=== PATIENT | female | born 1975 | race Caucasian/White ===

== ENCOUNTER → 2016-11-01 | Outpatient (CLI) | payer BC ==
--- NOTE | 2016-11-01 19:34 | SLS ---
DATE OF SERVICE: 11/01/2016 41-year-old lady evaluated in the sleep center for obstructive sleep apnea, hypopnea syndrome. HISTORY OF PRESENT ILLNESS/SLEEP WAKE EVALUATION: The patient had been diagnosed with obstructive sleep apnea in 2011. Since that time she is on treatment with CPAP. Recently, when she was started on treatment with CPAP she feels well, did not snore and did not wake up from sleep with any respiratory abnormalities. At the present time she started to have snoring again and awakening from sleep at least three times. SLEEP SCHEDULE: From 10 p.m. to 6 a.m. on working days and from 11:00 p.m. to 7 :00 a.m. on the weekend. No problem with falling asleep. No TV in bedroom. Positive history of sleep taking and, as already mentioned above, episodes of snoring, stop breathing during the sleep; sweating, palpitation, grinding teeth. In the morning the patient wakes up tired, feels sleepiness during the day. [place] sleepiness scale significantly increased to 11. PAST MEDICAL HISTORY: Positive for anxiety, depression, iron deficiency anemia , polycystic ovary syndrome. PAST SURGICAL HISTORY: Lap band surgery, cholecystectomy, gastric sleeve surgery, septoplasty. MEDICATIONS: Prozac, iron supplement, multivitamins. SOCIAL HISTORY: Negative for smoking or using alcohol. REVIEW OF SYSTEMS: Multiple awakenings. Some sleepiness during the day. FAMILY HISTORY: Hypertension, heart problems, hyperlipidemia, arthritis, asthma , sinus headache, sleep apnea, snoring, acid reflux, diabetes, thyroid problems , anemia. PHYSICAL EXAMINATION: GENERAL: A pleasant lady without distress. VITAL SIGNS: BP 108/69, HR 64, RR 16, height 4'10", weight 228, BMI 47.8. Neck 14 3/4 inches ( ). Temperature 98.5. OROPHARYNX: Small oropharyngeal air space. ABDOMEN: Obese. EXTREMITIES: Some tendency for swelling of ankles. IMPRESSION: 1. Obstructive sleep apnea, hypopnea syndrome diagnosed in 2011. Presently the patient developed snoring and multiple awakenings. Treatment with CPAP if her sleepiness scale increases to 11. 2. Obesity, body mass index 47.8. 3. History of anxiety. 4. History of depression. 5. History of iron deficiency anemia. 6. Polycystic ovary syndrome. 7. Status post cholecystectomy. 8. Status post lap band surgery and gastric sleeve surgery. 9. Status post septoplasty. PLAN: 1. Repeat CPAP titration for evaluation of effective CPAP pressure at the present time. 2. Losing weight. 3. Sleep hygiene with regular time in bed for at least 8 hours. 4. No driving if feeling sleepiness. Thank you very much for allowing me to participate in the management of your patient. Sincerely, Stephan Cagle MD, PhD, FAASM. Diplomat of [place] [employer], Sleep Medicine Board by [place] [employer] [place] [employer] Medical Direct of [facility]
== END ==
LOC: SLEEP 13:29
PROVIDERS: ATTEND Internal Medicine
DX: G47.33 Obstructive sleep apnea (adult) (pediatric) (principal); E66.9 Obesity, unspecified; F41.9 Anxiety disorder, unspecified; F32.9 Major depressive disorder, single episode, unspecified; E28.2 Polycystic ovarian syndrome; D50.9 Iron deficiency anemia, unspecified; Z90.49 Acquired absence of other specified parts of digestive tract; Z98.890 Other specified postprocedural states; Z68.42 Body mass index [BMI] 45.0-49.9, adult; Z79.899 Other long term (current) drug therapy
CPT/HCPCS: 99211

== ENCOUNTER → 2018-03-08 | Outpatient (CLI) | payer BC ==
--- NOTE | 2018-03-09 08:49 | MR ---
EXAMINATION TYPE: MR brain wo/w con DATE OF EXAM: 03/08/2018 COMPARISON: 02/14/2016 HISTORY: 42-year-old female R56.9, Per Pt Abnormal EEG, Gadavist 10.5ml, Previous MRI on PACS TECHNIQUE: Multiplanar, multisequence images of the brain and brainstem were acquired before and aft er administration of 10.5 mL IV Gadavist. Diffusion weighted imaging is performed. FINDINGS: No evidence for acute infarction, hemorrhage, mass, mass effect, midline shift, herniation, effacemen t of basal cisterns, or extra-axial fluid collection. The ventricles and sulci are age-appropriate. Major intracranial flow voids are intact. T2/FLAIR-weighted with visual minimal to mild scattered burden of white matter change primarily in th e subcortical and periventricular regions of both cerebral hemispheres. A few pericallosal foci prese nt posteriorly as well with 5 foci in each side, unchanged from 2016. Midline structures demonstrate normal morphology. The craniocervical junction is normal. Post contrast images demonstrate no evidence of pathologic enhancement. Dural venous sinuses are pat ent. Trace mucosal thickening ethmoid air cells. Globes are intact. IMPRESSION: Chronic T2 bright white matter changes with minimal to mild burden. No change from 2016. Otherwise, n o intracranial abnormality seen.
== END | disposition home or self-care (01) ==
LOC: RADMRIMAIN 08:17
PROVIDERS: ATTEND Psychiatry & Neurology Neurology
DX: R90.89 Other abnormal findings on diagnostic imaging of central nervous system (principal); R56.9 Unspecified convulsions
CPT/HCPCS: 82565; 70553; 36415; A9585

== ENCOUNTER → 2019-02-27 | Outpatient (CLI) | payer BC ==
--- NOTE | 2019-02-27 10:05 | US ---
EXAMINATION TYPE: US abdomen complete DATE OF EXAM: 02/27/2019 COMPARISON: Nuc med and US from 2012 CLINICAL HISTORY: R10.11 Right upper quadrant pain. EXAM MEASUREMENTS: Liver Length: 12.7 cm Gallbladder Wall: 0.3 cm CBD: 0.3 cm Spleen: 9.9 cm Right Kidney: 10.3 x 4.4 x 4.6 cm Left Kidney: 9.4 x 3.9 x 4.3 cm Patient morbidly obese with extensive overlying bowel gas, technically difficult study Pancreas: Obscured by bowel gas Liver: Slight coarsened hepatic echotexture. Gallbladder: Partially contracted and filled with sludge and stones Evidence for sonographic Stevens's sign: no CBD: wnl Spleen: wnl Right Kidney: No hydronephrosis or masses seen Left Kidney: partially obscured by bowel gas Upper IVC: wnl Abd Aorta: wnl The liver is slightly coarsened throughout. The intrahepatic portion of the IVC and proximal abdomin al aorta are within normal limits. There is no evidence of cholelithiasis. Common bile duct is unre markable. Increase is obscured. The spleen is unremarkable. Left kidney is partially obscured. Kidne ys are symmetric and free of hydronephrosis. No renal lesions are seen. IMPRESSION: 1. Gallbladder is partially contracted and filled with biliary sludge and calculi. No sonographic mayra dence of acute cholecystitis. 2. Slightly coarsened hepatic echotexture throughout can be seen in early hepatic steatosis or other hepatocellular diseases. Correlate with liver function tests. 3. Partial obscuration of the gallbladder and left kidney and obscuration of the pancreas. Exam is li mited by patient body habitus.
== END | disposition home or self-care (01) ==
LOC: RADUSWWP 07:35
PROVIDERS: ATTEND Internal Medicine
DX: K80.20 Calculus of gallbladder without cholecystitis without obstruction (principal); K83.8 Other specified diseases of biliary tract; K76.0 Fatty (change of) liver, not elsewhere classified; K82.8 Other specified diseases of gallbladder; K86.89 Other specified diseases of pancreas
CPT/HCPCS: 76700

== ENCOUNTER → 2019-03-07 | Outpatient (CLI) | payer BC ==
--- NOTE | 2019-03-13 12:16 | MM ---
Reason for exam: screening (asymptomatic). Last mammogram was performed 2 years and 2 months ago. History: Family history of breast cancer in sister at age 48 and breast cancer in sister at age 53. Physical Findings: A clinical breast exam by your physician is recommended on an annual basis and results should be correlated with mammographic findings. MG Screening Mammo w CAD Bilateral CC and MLO view(s) were taken. Prior study comparison: January 08, 2017, mammogram, performed at [facility]. There are scattered fibroglandular densities. There are benign appearing round calcifications bilaterally. There is no discrete abnormality. ASSESSMENT: Benign, BI-RAD 2 RECOMMENDATION: Routine screening mammogram of both breasts in 1 year.
== END | disposition home or self-care (01) ==
LOC: RADMAMWWP 09:54
PROVIDERS: ATTEND Internal Medicine
DX: Z12.31 Encounter for screening mammogram for malignant neoplasm of breast (principal)
CPT/HCPCS: 77067

== ENCOUNTER → 2019-05-27 | Outpatient (CLI) | payer BC ==
--- NOTE | 2019-05-27 16:08 | CT ---
EXAMINATION TYPE: CT abdomen pelvis w con DATE OF EXAM: 05/27/2019 COMPARISON: 01/20/2011 HISTORY: right sided abdominal pain, recent abnormal US CT DLP: 1618 mGycm Automated exposure control for dose reduction was used. CONTRAST: CT scan of the abdomen pelvis is performed with IV Contrast, patient injected with 100 mL of Isovue 3 00. FINDINGS- LUNG BASES- No significant abnormality is appreciated. LIVER/GB-postcholecystectomy changes seen. Liver homogeneous.. PANCREAS- No gross abnormality is seen. SPLEEN- No gross abnormality is seen. ADRENALS- No gross abnormality is seen. KIDNEYS/BLADDER- no hydronephrosis nephrolithiasis or renal mass. BOWEL-postsurgical change involving the stomach noted. Small hiatal hernia noted.. LYMPH NODES-there is a low-density lymph node seen in the left periaortic region measuring a short ax is of 10 mm.. OSSEOUS STRUCTURES-hypertrophic change of the vertebral column.. OTHER- lower uterine segment and cervix are slightly lobulated and should be correlated with pelvic ultrasound for further assessment. Additionally there is a hypodense lesion within the left ovary eneida suring 1.6 cm which could represent an ovarian cyst or cystic lesion. IMPRESSION- 1. Postcholecystectomy changes. 2. Lobulation of the lower uterine segment of the uterus and endocervical canal for which physical ex am and ultrasound recommended. Additionally there is a 1.7 cm left adnexal lesion which could be haven elated with pelvic ultrasound. 3. Postsurgical changes involving the stomach. Bowel gas pattern nonspecific with no obstruction. 4. Left periaortic low density lymphadenopathy measuring short axis of 1 cm. A borderline pathologic. This could be followed on a short-term basis as clinically warranted.
== END | disposition home or self-care (01) ==
LOC: RADCTMAIN 13:39
PROVIDERS: ATTEND Internal Medicine
DX: R59.0 Localized enlarged lymph nodes (principal); N85.9 Noninflammatory disorder of uterus, unspecified; Z98.890 Other specified postprocedural states; Z90.49 Acquired absence of other specified parts of digestive tract; Z88.8 Allergy status to other drugs, medicaments and biological substances
CPT/HCPCS: 74177; Q9967

== ENCOUNTER → 2019-06-03 | Outpatient (CLI) | payer BC ==
--- NOTE | 2019-06-03 13:29 | US ---
EXAMINATION TYPE: US transvaginal DATE OF EXAM: 06/03/2019 COMPARISON: CT CLINICAL HISTORY: R19.09 Abd pelvic mass. TECHNIQUE: Transvaginal (TV). Transvaginal sonographic images were medically necessary per physicia n's order; ; C section x 2; Poly Cystic Ovarian Syndrome per patient; Followup left ovarian cyst; patient stated menstrual cycles begin one week earlier than prior month with symptoms x 1 year. Date of LMP: 05/13/2019 EXAM MEASUREMENTS: Uterus: 9.3 x 5.2 x 4.8 cm Endometrial Stripe: 1.6 cm A/P Right Ovary: not seen Left Ovary: 1.7 x 1.4 x 1.5 cm 1. Uterus: Anteverted; multiple large Nabothian Cysts are seen in Cervix with largest cyst = 1.4 x 1 .6 x 1.2cm 2. Endometrium: thickened as is greater than 1.4cm (normal range) for day 22 LMP. However overall th is is within normal limits for a premenopausal female. 3. Right Ovary: not seen 4. Left Ovary: small follicular cyst seen = 0.7 x 0.7 x 0.6cm 5. Bilateral Adnexa: wnl 6. Posterior cul-de-sac: wnl Limited evaluation due to patient body habitus. IMPRESSION: 1. Limited evaluation due to patient body habitus. The cervix displays multiple nabothian cysts that could relate to heterogeneity seen on the prior CT although correlation with physical exam to evaluat e the cervix is again recommended. Line 2. Markedly suboptimal visualization of the left ovary containing a single subcentimeter follicle. No nvisualization of the right ovary.
== END | disposition home or self-care (01) ==
LOC: RADUSWWP 12:21
PROVIDERS: ATTEND Internal Medicine
DX: N88.8 Other specified noninflammatory disorders of cervix uteri (principal)
CPT/HCPCS: 76830

== ENCOUNTER → 2020-08-17 | Outpatient (CLI) | payer BC ==
--- NOTE | 2020-08-18 12:18 | MM ---
Reason for exam: screening (asymptomatic). Last mammogram was performed 1 year and 5 months ago. History: Family history of breast cancer in sister at age 48 and breast cancer in sister at age 53. Physical Findings: A clinical breast exam by your physician is recommended on an annual basis and results should be correlated with mammographic findings. MG Screening Mammo w CAD Bilateral CC and MLO view(s) were taken. Prior study comparison: March 07, 2019, bilateral MG screening mammo w CAD. January 08, 2017, mammogram, performed at [facility]. No significant changes when compared with prior studies. ASSESSMENT: Benign, BI-RAD 2 RECOMMENDATION: Routine screening mammogram of both breasts in 1 year.
== END | disposition home or self-care (01) ==
LOC: RADMAMWWP 07:36
PROVIDERS: ATTEND Internal Medicine
DX: Z12.31 Encounter for screening mammogram for malignant neoplasm of breast (principal); Z80.3 Family history of malignant neoplasm of breast
CPT/HCPCS: 77067

== ENCOUNTER 2020-09-16 07:21 | Emergency (ER) | payer BC ==
[2020-09-16 07:30] VITALS: TEMP 97.4
[2020-09-16] MEDS ORDERED: LORazepam 2 MG/ML INJ IV STA ×2 (07:42→09:10)
[2020-09-16] MEDS ORDERED: SODIUM CHLORIDE 0.9% 1,000 ML IV STA (07:42)
--- NOTE | 2020-09-16 07:43 | ED ---
General Adult HPI - General Chief complaint: Anxiety Stated complaint: racing heart Time Seen by Provider: 09/16/20 07:30 Source: patient Mode of arrival: ambulatory Limitations: no limitations - History of Present Illness Initial comments: 45-year-old female with a past medical history of anxiety presents to the emergency room for a chief complaint of racing heart. Patient states that she has a history of anxiety and is prescribed as needed Xanax for this. Patient reports last 2 nights she did not sleep well. Last night she took half a Xanax before going to bed. Patient states she woke up around 5 AM and her heart was racing. States it felt like she was having her normal episode of anxiety but the racing heart persisted. States that it usually will resolve after about an hour but after 2 hours of symptoms she became concerned. She states she started to have a little bit of pressure in her chest. Denies radiating pain. Her prompted her to come to the emergency room. She did not take any Xanax for this episode. Patient denies smoking history, diabetes, hyperlipidemia, hypercholesterolemia. Patient has no other complaints at this time including shortness of breath, chest pain, abdominal pain, nausea or vomiting, headache, or visual changes. - Related Data Home Medications Medication Instructions Recorded Confirmed ALPRAZolam [Xanax] 0.25 - 0.5 mg PO DAILY PRN 09/16/20 09/16/20 Biotin 5 mg PO DAILY 09/16/20 09/16/20 Butalb/APAP/Caff 50-325-40Mg 1 tab PO Q4H PRN 09/16/20 09/16/20 [Fioricet 50-325-40] Cetirizine HCl [Zyrtec] 10 mg PO DAILY PRN 09/16/20 09/16/20 Cholecalciferol [Vitamin D3 (25 50 mcg PO DAILY 09/16/20 09/16/20 Mcg = 1000 Iu)] FLUoxetine HCL 40 mg PO DAILY 09/16/20 09/16/20 Fluticasone Nasal [place] [Flonase 2 spr EA NOSTRIL DAILY PRN 09/16/20 09/16/20 Nasal [place]] Milk Thistle 150 mg PO DAILY 09/16/20 09/16/20 Multivitamins, Thera [Multivitamin 1 tab PO DAILY 09/16/20 09/16/20 (formulary)] Allergies Allergy/AdvReac Type Severity Reaction Status Date / Time amoxicillin Allergy Anaphylaxis Verified 09/16/20 09:23 Review of Systems ROS Statement: Those systems with pertinent positive or pertinent negative responses have been documented in the HPI. ROS Other: All systems not noted in ROS Statement are negative. Past Medical History History of Any Multi-Drug Resistant Organisms: None Reported Past Surgical History: Section, Cholecystectomy Past Psychological History: Anxiety Smoking Status: Never smoker Past Alcohol Use History: None Reported Past Drug Use History: None Reported General Exam Limitations: no limitations General appearance: alert, anxious Head exam: Present: atraumatic, normocephalic, normal inspection Eye exam: Present: normal appearance, PERRL, EOMI. Absent: scleral icterus, conjunctival injection, periorbital swelling ENT exam: Present: normal exam, mucous membranes moist Neck exam: Present: normal inspection, full ROM. Absent: tenderness, meningi smus, lymphadenopathy Respiratory exam: Present: normal lung sounds bilaterally. Absent: respiratory distress, wheezes Cardiovascular Exam: Present: normal rhythm, tachycardia, normal heart sounds GI/Abdominal exam: Present: soft, normal bowel sounds. Absent: distended, tenderness, guarding, rebound, rigid Course Vital Signs 09/16/20 09/16/20 07:28 09:01 Temperature 97.4 F L Pulse Rate 111 H 99 Respiratory 16 19 Rate Blood Pressure 165/74 123/77 O2 Sat by Pulse 98 98 Oximetry EKG Findings - EKG Comments: EKG Findings:: Sinus tachycardia, ventricular rate 113, LA interval 140, QTc 482 Medical Decision Making - Medical Decision Making Patient presents initially mildly tachycardic. EKG shows a sinus tachycardia. Nonischemic. CBC CMP unremarkable. Troponin negative. Patient was given a liter of fluids and a milligram of Ativan. Her heart rate did improve to the high 90s. She is anywhere between 96-99 bpm. Symptoms did improve somewhat but she is still feeling her heart is racing and anxious. She was given another dose of Ativan. D-dimer added. D-dimer is within normal limits. Patient was given another milligram of Ativan and did have significant improvement in symptoms. She was resting. Heart rate was down to the 80s. She does not have cardiac risk factors such as diabetes, smoking, hyperlipidemia, hypertension. Patient can be discharged home in stable condition to follow up with primary care. She does have a ride. She'll return here for any worsening symptoms. - Lab Data Result diagrams: 09/16/20 07:48 09/16/20 07:48 Lab Results 09/16/20 09/16/20 09/16/20 Range/Units 07:48 07:48 07:48 WBC 6.6 (3.8-10.6) k/uL RBC 4.59 (3.80-5.40) m/uL Hgb 12.7 (11.4-16.0) gm/dL Hct 37.7 (34.0-46.0) % MCV 82.0 (80.0-100.0) fL MCH 27.6 (25.0-35.0) pg MCHC 33.6 (31.0-37.0) g/dL RDW 14.7 (11.5-15.5) % Plt Count 254 (150-450) k/uL MPV 8.1 Neutrophils % 76 % Lymphocytes % 16 % Monocytes % 5 % Eosinophils % 2 % Basophils % 1 % Neutrophils # 5.0 (1.3-7.7) k/uL Lymphocytes # 1.0 (1.0-4.8) k/uL Monocytes # 0.3 (0-1.0) k/uL Eosinophils # 0.1 (0-0.7) k/uL Basophils # 0.0 (0-0.2) k/uL D-Dimer (<0.60) mg/L FEU Sodium 140 (137-145) mmol/L Potassium 3.8 (3.5-5.1) mmol/L Chloride 105 (98-107) mmol/L Carbon Dioxide 28 (22-30) mmol/L Anion Gap 7 mmol/L BUN 8 (7-17) mg/dL Creatinine 0.59 (0.52-1.04) mg/dL Est GFR (CKD-EPI)AfAm >90 (>60 ml/min/1.73 sqM) Est GFR (CKD-EPI)NonAf >90 (>60 ml/min/1.73 sqM) Glucose 114 H (74-99) mg/dL Calcium 9.2 (8.4-10.2) mg/dL Magnesium 2.1 (1.6-2.3) mg/dL Total Bilirubin 0.4 (0.2-1.3) mg/dL AST 25 (14-36) U/L ALT 16 (4-34) U/L Alkaline Phosphatase 107 (38-126) U/L Troponin I <0.012 (0.000-0.034) ng/mL Total Protein 6.6 (6.3-8.2) g/dL Albumin 3.8 (3.5-5.0) g/dL 09/16/20 Range/Units 09:15 WBC (3.8-10.6) k/uL RBC (3.80-5.40) m/uL Hgb (11.4-16.0) gm/dL Hct (34.0-46.0) % MCV (80.0-100.0) fL MCH (25.0-35.0) pg MCHC (31.0-37.0) g/dL RDW (11.5-15.5) % Plt Count (150-450) k/uL MPV Neutrophils % % Lymphocytes % % Monocytes % % Eosinophils % % Basophils % % Neutrophils # (1.3-7.7) k/uL Lymphocytes # (1.0-4.8) k/uL Monocytes # (0-1.0) k/uL Eosinophils # (0-0.7) k/uL Basophils # (0-0.2) k/uL D-Dimer 0.56 (<0.60) mg/L FEU Sodium (137-145) mmol/L Potassium (3.5-5.1) mmol/L Chloride (98-107) mmol/L Carbon Dioxide (22-30) mmol/L Anion Gap mmol/L BUN (7-17) mg/dL Creatinine (0.52-1.04) mg/dL Est GFR (CKD-EPI)AfAm (>60 ml/min/1.73 sqM) Est GFR (CKD-EPI)NonAf (>60 ml/min/1.73 sqM) Glucose (74-99) mg/dL Calcium (8.4-10.2) mg/dL Magnesium (1.6-2.3) mg/dL Total Bilirubin (0.2-1.3) mg/dL AST (14-36) U/L ALT (4-34) U/L Alkaline Phosphatase (38-126) U/L Troponin I (0.000-0.034) ng/mL Total Protein (6.3-8.2) g/dL Albumin (3.5-5.0) g/dL Disposition Clinical Impression: Palpitations Disposition: HOME SELF-CARE Condition: Good Instructions (If sedation given, give patient instructions): Generalized Anxiet y Disorder (ED), Heart Palpitations (ED) Additional Instructions: Please follow-up with your doctor in one to 2 days. If symptoms are worsening return to the emergency room for further evaluation. Is patient prescribed a controlled substance at d/c from ED?: No Referrals: Ryan Alvarez MD [Primary Care Provider] - 1-2 days Time of Disposition: 10:20
[2020-09-16 08:03] LABS: Basophils % (A) 1 %; Eosinophils # (A) 0.1 k/uL (0-0.7); Eosinophils % (A) 2 %; HCT 37.7 % (34.0-46.0); HGB 12.7 gm/dL (11.4-16.0); Lymphocytes % (A) 16 %; MCH 27.6 pg (25.0-35.0); MCHC 33.6 g/dL (31.0-37.0); Mean Platelet Volume 8.1; Monocytes # (A) 0.3 k/uL (0-1.0); Monocytes % (A) 5 %; Neutrophils % (A) 76 %; Platelet Count 254 k/uL (150-450); RBC 4.59 m/uL (3.80-5.40); RDW 14.7 % (11.5-15.5); WBC 6.6 k/uL (3.8-10.6)
--- NOTE | 2020-09-16 08:38 | XR ---
EXAMINATION TYPE: XR chest 2V DATE OF EXAM: 09/16/2020 COMPARISON: 11/02/2009 HISTORY: Palpitations TECHNIQUE: Frontal and lateral views of the chest are obtained. FINDINGS: Multiple overlying leads. Heart size is within normal limits. No pleural effusion, focal c onsolidation or pneumothorax. IMPRESSION: 1. No acute pulmonary disease.
[2020-09-16 08:42] LABS: ALT 16 U/L (4-34); AST 25 U/L (14-36); African American GFR (CKD) >90 (>60 ml/min/1.73 sqM); Albumin 3.8 g/dL (3.5-5.0); Alkaline Phosphatase 107 U/L (38-126); Anion Gap 7 mmol/L; Blood Urea Nitrogen 8 mg/dL (7-17); Calcium 9.2 mg/dL (8.4-10.2); Carbon Dioxide 28 mmol/L (22-30); Chloride 105 mmol/L (98-107); Glucose 114 mg/dL (74-99); Magnesium 2.1 mg/dL (1.6-2.3); Non-African American GFR(CKD) >90 (>60 ml/min/1.73 sqM); Potassium 3.8 mmol/L (3.5-5.1); Sodium 140 mmol/L (137-145); Total Bilirubin 0.4 mg/dL (0.2-1.3); Total Protein 6.6 g/dL (6.3-8.2)
[2020-09-16 10:56] VITALS: BP 125/79; PULSE 88; RESP 17
== END 2020-09-16 10:58 | disposition home or self-care (01) ==
LOC: EC 07:21
DX: R00.2 Palpitations (principal); F41.9 Anxiety disorder, unspecified; Z79.899 Other long term (current) drug therapy
CPT/HCPCS: 36415; 93005; 85379; 80053; 83735; 84484; 85025; 71046; 99285; 96374; 96375; 96361 ×3; J2060

== ENCOUNTER 2020-12-23 10:10 | Day surgery (SDC) | payer BC ==
[2020-12-21 14:32] VITALS: BMI 53.3
[~2020-12-23 10:10] MED LIST: LACTATED RINGERS 1,000 ML IV SCH
[2020-12-23 11:10] VITALS: RESP 16; TEMP 97.4
[2020-12-23] MEDS ORDERED: PROPOFOL 10 MG/ML 20 ML VIAL IV ONE (12:02)
[2020-12-23] MEDS ORDERED: LIDOCAINE 1% INJ 10MG/ML (20 ML MDV) ONE (12:02)
--- NOTE | 2020-12-23 12:16 | P.PCN ---
Date of Procedure: 12/23/20 Procedure(s) Performed: BRIEF HISTORY: Patient is a 45-year-old, pleasant, female scheduled for an upper endoscopy as a part of value should persistent nausea and reflux symptoms for the last several months duration. PROCEDURE PERFORMED: Esophagogastroduodenoscopy with biopsy. PREOPERATIVE DIAGNOSIS: Nausea and reflux symptoms. IV sedation per anesthesia. PROCEDURE: After informed consent was obtained, the patient was brought into the endoscopy unit. IV sedation was administered by Anesthesia under continuous monitoring. Initially the Olympus GIF-140 video endoscope was inserted into the mouth. Esophagus intubated without any difficulty. It was gradually advanced into the stomach and duodenum and carefully examined. The bulb and the second part of the duodenum appeared normal. The scope at this time was withdrawn to the stomach, adequately insufflated with air, and upon careful examination, mucosa of the antrum, had mild gastritis and biopsies were done from this area. The body, cardia and the fundus appeared normal. There was evidence of gastric sleeve surgery noted. The scope was then withdrawn into the esophagus. The GE junction was located at 39 cm from the incisors. Mall sliding type hiatal hernia noted. Biopsies were done from the distal esophagus. The esophagus appe ared normal. There were no erosions or ulcerations seen and the patient tolerated the procedure well. IMPRESSION: 1. Small sliding type hiatal hernia. 2. Mild antral gastritis 3. Evidence of gastric sleeve surgery. RECOMMENDATIONS: The findings of this examination were discussed with the patient as well as a family. She was advised to follow with the biopsy results. She'll be given a trial of Prilosec 20 mg daily and was briefly educated about antireflux.
[2020-12-23 12:45] VITALS: BP 123/87; PULSE 104
== END 2020-12-23 13:04 | disposition home or self-care (01) ==
LOC: ORWHC2ENDO 10:10
PROVIDERS: ATTEND Internal Medicine Gastroenterology
DX: K29.50 Unspecified chronic gastritis without bleeding (principal); K21.9 Gastro-esophageal reflux disease without esophagitis; K44.9 Diaphragmatic hernia without obstruction or gangrene; Z98.84 Bariatric surgery status; Z88.0 Allergy status to penicillin; G47.33 Obstructive sleep apnea (adult) (pediatric); F41.9 Anxiety disorder, unspecified; F32.9 Major depressive disorder, single episode, unspecified; Z79.899 Other long term (current) drug therapy
CPT/HCPCS: 43239; 81025; 88305; J2001; J2704

== ENCOUNTER → 2021-10-12 | Outpatient (CLI) | payer BC ==
--- NOTE | 2021-10-13 16:50 | MM ---
Reason for Exam: Screening (asymptomatic). Last mammogram was performed 1 year(s) and 1 month(s) ago. Patient History: Menarche at age 14. First Full-Term at age 20. Sister had breast cancer, age 48. Last menstrual period: 10/02/2021 Risk Values: Mary [place] 5 year model risk: 1.5%. NCI Lifetime model risk: 17.1%. Prior Study Comparison: 01/08/2017 Screening Mammogram, [facility]. 03/07/2019 Bilateral Screening Mammogram, [facility]. 08/17/2020 Bilateral Screening Mammogram, [facility]. Tissue Density: There are scattered fibroglandular densities. Findings: Analyzed By CAD. No suspicious groups of microcalcifications, spiculated or lobular masses, architectural distortion or other secondary signs of malignancy are mammographically apparent. Overall Assessment: Benign, BI-RAD 2 Management: Screening Mammogram of both breasts in 1 year. A negative mammogram report should not preclude additional follow up of suspicious palpable abnormalities. Patient should continue monthly self breast exam. A clinical breast exam by your physician is recommended on an annual basis and results should be correlated with mammographic findings. Electronically signed and approved by: Raul Carranza D.O. Radiologis
== END | disposition home or self-care (01) ==
LOC: RADMAMWWP 07:27
PROVIDERS: ATTEND Obstetrics & Gynecology
DX: Z12.31 Encounter for screening mammogram for malignant neoplasm of breast (principal); Z80.3 Family history of malignant neoplasm of breast
CPT/HCPCS: 77067

== ENCOUNTER → 2022-03-28 | Outpatient (CLI) | payer BC ==
--- NOTE | 2022-03-28 17:10 | P.SLEEP ---
History of Present Illness DATE: 03/28/2022 CONSULTATION/NEW PATIENT EVALUATION HISTORY OF PRESENT ILLNESS/SLEEP-WAKE EVALUATION: 46-year-old lady had been ev aluated in the sleep center for obstructive sleep apnea hypopnea syndrome. Patient has history of obstructive sleep apnea since 2011. Last time I so patient in 2017. Patient continued to use sure CPAP equipment for about the 1 years ago. I checked CPAP unit is very old. CPAP pressure is 10 cm of water. Patient did not use CPAP unit recently. No information on apnea-hypopnea index in that unit. SLEEP SCHEDULE: Usually sleep schedule 10 PM to 7 AM on weekdays and from 12 until until 7 AM on weekend. FALLING ASLEEP: No problems with falling asleep, no TV in bedroom. DURING SLEEP: Patient usually sleeps on the side position with snoring and multiple awakenings from sleep. Positive history of panic attack, palpitation, sweating, grinding teeth during the sleep time. No history of hypnogogical hallucinations, sleep paralysis, or cataplexy. DURING THE DAY/WAKE STATE: In the morning patient wake up tired, has difficulties to pay attention, has episodes of irritability, depression, anxiety.. [place] sleepiness scale is increased to 13. Usually patient doesn't take naps. PAST MEDICAL HISTORY: Depression, anxiety, iron deficiency anemia, polycystic ovary syndrome, menopausal. PAST SURGICAL HISTORY: Cholecystectomy, gastric sleep, nasal septoplasty, C- section. MEDICATIONS: Prozac 20 mg once a day, buspirone, Singulair. SOCIAL HISTORY: Negative for smoking or using alcohol. FAMILY HISTORY: Hypertension, heart problems, diabetes, mental illness. REVIEW OF SYSTEMS: Snoring, multiple awakenings from sleep, sleepiness during the day. No fevers. No double vision. No recent chest pain. No shortness of breath. No abdominal pain. No bleeding episodes. No blood in urine. No seizure episodes. PHYSICAL EXAMINATION: GENERAL: A pleasant patient without any distress. VITAL SIGNS: BP 126/82, HR 77, RR 16, weight 264 pounds, height 4 foot 9.5 inches, body mass index 56.1. HEENT: PERRLA, EOMI. Evaluation of oropharynx showed tongue protrudes midline, low position of soft palate Mallampati 4. NECK: Supple. No JVD. Thyroid is not palpable. 16 and 2/3 inches in circumference. LUNGS: Clear to percussion and to auscultation. Good air exchange. No wheezing or rhonchi. HEART: S1, S2 regular. No murmurs, gallops or rubs. ABDOMEN: Soft and nontender. Bowel sounds are present. No organomegaly appreciated. Obese EXTREMITIES: No clubbing or cyanosis. VINYL INSTALLER: Awake, alert, and oriented x3. Cranial nerves 2 to 7 intact. There is no fasciculation or atrophy noted. No focal deficits observed. ASSESSMENT: 1. Snoring and multiple awakenings from sleep, extremely low position of soft palate Mallampati 4, white neck 16 inches, sleepiness, history of obstructive sleep apnea in the past. Obstructive sleep apnea hypopnea syndrome. 2. Obesity body mass index 56.1. 3. History of depression and anxiety. 4. History of iron deficiency anemia. 5 history of polycystic ovary syndrome. 6 . Status post cholecystectomy. 7. Status post lap band surgery and gastric sleeve surgery. 8. Status post nasal septoplasty. PLAN: 1. Home sleep apnea test for evaluation of patient's breathing during sleep and the present time. 2. CPAP/BiPAP titration if necessary following results of home sleep apnea test. 3. Preferable position during sleep on the side. 4. No driving if patient feels any sleepiness. Patient is aware of civil and criminal liability for unsafe driving. 5. Sleep hygiene with regular sleep time for at least 7.5-8 hours. 6. Watching and losing weight. Thank you very much for referring this patient for consultation. Sincerely, Stephan Cagle MD, PhD, FAASM. Diplomat of [place] [employer], Sleep Medicine Board by [place] [employer] [place] [employer]worth[employer] Inspector of [facility] [place] Past Medical History Past Medical History: GERD/Reflux, Sleep Apnea/CPAP/BIPAP Additional Past Medical History / Comment(s): NAUSEA, REFLUX, CRAMPING, CHANGE IN BOWEL HABITS. USES C PAP MACHINE History of Any Multi-Drug Resistant Organisms: None Reported Past Surgical History: Bariatric Surgery, Section, Cholecystectomy Additional Past Surgical History / Comment(s): SEPTOPLASTY. GASTRIC SLEEVE 2016. EGD/COLONOSCOPY Past Anesthesia/Blood Transfusion Reactions: Motion Sickness Additional Past Anesthesia/Blood Transfusion Reaction / Comment(s): WILL SOMETIMES HAVE PALPATATIONS COMING OUT OF ANESTHESIA Smoking Status: Never smoker - Past Family History Sister(s) Family Medical History: Deep Vein Thrombosis (DVT) Additional Family Medical History / Comment(s): 2 SISTERS WITH CANCER Medications and Allergies Home Medications Medication Instructions Recorded Confirmed Type ALPRAZolam [Xanax] 0.25 - 0.5 mg PO DAILY PRN 09/16/20 12/23/20 History Biotin 5 mg PO DAILY 09/16/20 12/23/20 History Butalb/APAP/Caff 50-325-40Mg 1 tab PO Q4H PRN 09/16/20 12/23/20 History [Fioricet 50-325-40] Cetirizine HCl [Zyrtec] 10 mg PO DAILY PRN 09/16/20 12/23/20 History Cholecalciferol [Vitamin D3 (25 50 mcg PO DAILY 09/16/20 12/23/20 History Mcg = 1000 Iu)] FLUoxetine HCL 40 mg PO DAILY 09/16/20 12/23/20 History Fluticasone Nasal [place] [Flonase 2 spr EA NOSTRIL DAILY PRN 09/16/20 12/23/20 History Nasal [place]] Multivitamins, Thera [Multivitamin 1 tab PO DAILY 09/16/20 12/23/20 History (formulary)] busPIRone HCL 5 mg PO BID 12/21/20 12/23/20 History Allergies Allergy/AdvReac Type Severity Reaction Status Date / Time amoxicillin Allergy Anaphylaxis Verified 12/23/20 10:57 Penicillins Allergy Anaphylaxis Verified 12/23/20 10:57 Sleep Note - Sleep Note Sleep Note: Temperature: Pulse Rate: Respiratory Rate: Blood Pressure: SpO2: Height: Weight: BMI: Neck Circumference:
== END ==
LOC: SLEEP 15:32
PROVIDERS: ATTEND Internal Medicine
DX: G47.33 Obstructive sleep apnea (adult) (pediatric) (principal); E66.9 Obesity, unspecified; Z68.43 Body mass index [BMI] 50.0-59.9, adult; Z98.84 Bariatric surgery status; Z90.49 Acquired absence of other specified parts of digestive tract; Z98.890 Other specified postprocedural states; Z86.59 Personal history of other mental and behavioral disorders; Z86.2 Personal history of diseases of the blood and blood-forming organs and certain disorders involving the immune mechanism; Z87.42 Personal history of other diseases of the female genital tract; Z88.0 Allergy status to penicillin
CPT/HCPCS: 99211

== ENCOUNTER → 2022-12-27 | Outpatient (CLI) | payer BC ==
--- NOTE | 2022-12-28 12:33 | MM ---
Reason for Exam: Screening (asymptomatic). Last mammogram was performed 1 year(s) and 3 month(s) ago. Patient History: Menarche at age 14. First Full-Term at age 20. Perimenopausal. Sister had breast cancer, age 48. Risk Values: Mary Kate 5 year model risk: 1.6%. NCI Lifetime model risk: 16.9%. Prior Study Comparison: 03/07/2019 Bilateral Screening Mammogram, [facility]. 08/17/2020 Bilateral Screening Mammogram, [facility]. 10/12/2021 Bilateral MG screening mammo w CAD, [facility]. Tissue Density: There are scattered fibroglandular densities. Findings: Analyzed By CAD. There is no suspicious group of microcalcifications or new suspicious mass in either breast. Overall Assessment: Negative, BI-RAD 1 Management: Screening Mammogram of both breasts in 1 year. . Patient should continue monthly self-breast exams. A clinical breast exam by your physician is recommended on an annual basis. This exam should not preclude additional follow-up of suspicious palpable abnormalities. Note on Mary Kate scores and lifetime risk: 1. A Mary Kate score greater than 3% is considered moderate risk. If this is the case, consider specialist referral to assess eligibility for a risk reducing agent. 2. If overall lifetime risk for the development of breast cancer is 20% or higher, the patient may qualify for future screening with alternating mammogram and breast MRI. Electronically signed and approved by: Rahat Gupta M.D. Radiologis
== END | disposition home or self-care (01) ==
LOC: RADMAMWWP 15:34
PROVIDERS: ATTEND Obstetrics & Gynecology
DX: Z12.31 Encounter for screening mammogram for malignant neoplasm of breast (principal); Z80.3 Family history of malignant neoplasm of breast
CPT/HCPCS: 77067

== ENCOUNTER → 2022-12-27 | Outpatient (CLI) | payer BC ==
--- NOTE | 2022-12-27 15:41 | P.PN ---
Subjective DATE: 12/27/2022 FOLLOW UP VISIT. Patient returned to sleep center discuss results of sleep study and following plan. I discuss results of home sleep apnea test with patient in details. Sleep study showed apnea-hypopnea index 15.6. Digoxin discharged to 79%. Oxygen level was below normal for 15 minutes. I explained to the patient nece ssity to get treatment with CPAP. Patient has old CPAP unit which is more than 8 year old, she does not use it and unit does not show apnea-hypopnea index. . [place] sleepiness scale is significantly increased to 15. MEDICATIONS:1. Duloxetine 30 mg once a day 2. Singulair once a day 3. Nasal spray During physical exam: GENERAL: A pleasant patient without any distress. VITAL SIGNS: BP 125 for 84, HR 99, RR 18 , weight 273.4, temperature 98.2, oxygen saturation at room air 96 . HEENT: PERRLA, EOMI. NECK: Supple. No JVD. LUNGS: Clear to percussion and to auscultation. Good air exchange. No wheezing or rhonchi. HEART: S1, S2 regular. ABDOMEN: Soft and nontender. Obese EXTREMITIES: No clubbing or cyanosis. HEEL ROOM SUPERVISOR: Awake, alert, and oriented x3. No focal deficit. Impressions: 1. Obstructive sleep apnea hypopnea syndrome in moderate range by results of home sleep apnea test 2. Obesity, patient increased to wait on 99 pounds since previous visit. 3. History of depression and anxiety. 4. History of iron deficiency anemia. 5. History of polycystic ovary syndrome. 6. Status post cholecystectomy. 7. Status post nasal septoplasty. 8. Status post lap band and gastric sleeve surgery. Plan: 1. Patient will be started on treatment with CPAP. Prescription for AutoPap unit have been written. 2. Sleep hygiene with regular time in bed for at least 8 hours. 3. Precautions related to driving. No driving if feel any sleepiness. Patient is aware about civil and criminal liability for unsafe driving, promised to follow recommendations. 4. I will see patient for follow up visit in one months after patient will get CPAP unit to evaluate clinical response on treatment, compliance with treatment and make any necessary adjustments related to mask fitting pressure and humidification. Thank you very much for allowing me to participate in the management of your patient. Stephan Cagle MD, PhD, FAASM. Diplomat of [place] [employer], Sleep Medicine Board by [place] [employer] Workcell Operator of [facility] [place]
== END ==
LOC: 3 N SLEEP 14:52
PROVIDERS: ATTEND Internal Medicine
DX: G47.33 Obstructive sleep apnea (adult) (pediatric) (principal); E28.2 Polycystic ovarian syndrome; E66.9 Obesity, unspecified; F32.A Depression, unspecified; F41.9 Anxiety disorder, unspecified; Z79.899 Other long term (current) drug therapy; Z90.49 Acquired absence of other specified parts of digestive tract; Z98.890 Other specified postprocedural states; Z98.84 Bariatric surgery status; Z88.0 Allergy status to penicillin
CPT/HCPCS: 99212

== ENCOUNTER → 2023-07-03 | Outpatient (CLI) | payer BC ==
--- NOTE | 2023-07-03 14:06 | P.PN ---
Subjective DATE: 07/03/2023 FOLLOW UP VISIT. Patient with obstructive sleep apnea hypopnea syndrome return to sleep center for follow-up visit. Information from previous visit have been reviewed. Patient is using PAP equipment every night for the whole night, getting PAP supplies in time. The patient does not have significant problems with the mask, PAP unit and humidification. [place] sleepiness scale is 8, which is normal. I checked information from PAP unit. PAP unit pressure 5-12 cm H2O. Usage is 73% for more then 4 hours, average 7 hours per night. Leak is 16.3 l/m, which is in acceptable range. Apnea Hypopnea Index is 1.3, which is normal. MEDICATIONS:1. Duloxetine 30 mg twice a day 2. Singulair 10 mg once a day During physical exam: GENERAL: A pleasant patient without any distress. VITAL SIGNS: Please see below, weight 242.8 pounds. HEENT: PERRLA, EOMI.low position of soft palate, Mallapati 3 . NECK: Supple. No JVD. LUNGS: Clear to percussion and to auscultation. Good air exchange. No wheezing or rhonchi. HEART: S1, S2 regular. ABDOMEN: Soft and nontender. Obese EXTREMITIES: No clubbing or cyanosis. HOME AID: Awake, alert, and oriented x3. No focal deficit. Impressions: 1. Obstructive sleep apnea-hypopnea syndrome. Patient demonstrated good compliance with treatment, benefiting from treatment. 2. Obesity, patient increased weight on 19 pounds comparing with previous visit. 3. Tachycardia in the office. 4. History of depression and anxiety. 5. History of iron deficiency anemia. 6. History of polycystic ovary syndrome. 7. Status post septoplasty. 8. Status post cholecystectomy. 9. Status post lap band and gastric sleeve surgery. Plan: 1. Continue using PAP equipment every night for the whole night. 2. To change air filter at least 1-2 times per month. 3. PAP unit should stay lower then position of the head. 4. Advised patient to remove all remaining water from humidifier canister daily and make it dry after each usage. Refill canister with fresh distilled water before each usage. 5. Sleep hygiene with regular time in bed for at least 8 hours. 6. Precautions related to driving. No driving if feel any sleepiness. 7. I will maintain prescription for PAP supplies including mask, tube, filters. 8. Follow up visit in 6 months or earlier if patient has any problems. 9. Watching and losing weight. Thank you very much for allowing me to participate in the management of your patient. tSephan Cagle MD, PhD, FAASM. Diplomat of [place] [employer], Sleep Medicine Board by [place] [employer] Massotherapist of [facility] [place] Objective - Vital Signs Vital signs: Vital Signs Temp 98.2 F 07/03/23 13:43 Pulse 105 H 07/03/23 13:43 Resp 18 07/03/23 13:43 BP 139/81 07/03/23 13:43 Pulse Ox 96 07/03/23 13:43 FiO2 Intake & Output 07/02/23 07/03/23 07/03/23 18:59 06:59 18:59 Weight 132.449 kg
[2023-07-03 14:08] VITALS: BP 139/81; PULSE 105; RESP 18; TEMP 98.2
== END | disposition home or self-care (01) ==
LOC: 3 N SLEEP 13:37
PROVIDERS: ATTEND Internal Medicine
DX: G47.33 Obstructive sleep apnea (adult) (pediatric) (principal); E66.9 Obesity, unspecified; R00.0 Tachycardia, unspecified; F32.A Depression, unspecified; F41.9 Anxiety disorder, unspecified; E28.2 Polycystic ovarian syndrome; D50.9 Iron deficiency anemia, unspecified; Z90.49 Acquired absence of other specified parts of digestive tract; Z98.84 Bariatric surgery status; Z99.89 Dependence on other enabling machines and devices; Z88.0 Allergy status to penicillin; Z90.3 Acquired absence of stomach [part of]
CPT/HCPCS: 99212

== ENCOUNTER → 2024-02-05 | Outpatient (CLI) | payer BC ==
[2024-02-05 13:22] VITALS: BP 128/78; PULSE 104; RESP 16; TEMP 98.2
--- NOTE | 2024-02-05 13:49 | P.PROGSL ---
Subjective DATE: 02/05/2024 FOLLOW UP VISIT. Patient with obstructive sleep apnea hypopnea syndrome return to sleep center for follow-up visit. Information from previous visit have been reviewed. Patient is using PAP equipment every night for the whole night, getting PAP supplies in time. The patient does not have significant problems with the mask, PAP unit and humidification. [place] sleepiness scale is slightly increased to 11. I checked information from PAP unit. PAP unit pressure 5-12, average 11.7 cm H2O. Usage is 80% for more then 4 hours, average 5.75 hours per night. Leak is 12.6 l/m, which is in acceptable range. Apnea Hypopnea Index is 1.7, which is normal. MEDICATIONS have been reviewed, please see below. During physical exam: GENERAL: A pleasant patient without any distress. VITAL SIGNS: Please see below, weight is 299 lbs. HEENT: PERRLA, EOMI.low position of soft palate, Mallapati 3. NECK: Supple. No JVD. LUNGS: Clear to percussion and to auscultation. Good air exchange. No wheezing or rhonchi. HEART: S1, S2 regular. ABDOMEN: Soft and nontender. Obese EXTREMITIES: No clubbing or cyanosis. MACHINE LEATHER TRIMMER: Awake, alert, and oriented x3. No focal deficit. Impressions: 1. Obstructive sleep apnea-hypopnea syndrome. Patient demonstrated good compliance with treatment, benefiting from treatment. 2. Obesity, BMI 64.7, patient increased weight on 57 pounds. 3. History of iron deficiency anemia. 4. History of depression and anxiety. 5. History of polycystic ovary syndrome. 6. Status post lap band and gastric sleeve surgery. 7. Status post septoplasty. 8. Status post cholecystectomy. Plan: 1. Continue using PAP equipment every night for the whole night. 2. Sleep hygiene with regular time in bed for at least 7.5-8 hours 3. PAP unit should stay lower then position of the head. 4. Advised patient to remove all remaining water from humidifier canister daily and make it dry after each usage. Refill canister with fresh distilled water before each usage. 5. Watching and losing weight. 6. Precautions related to driving. No driving if feel any sleepiness. 7. I will maintain prescription for PAP supplies including mask, tube, filters. 8. Follow up visit in 8 months or earlier if patient has any problems. Thank you very much for allowing me to participate in the management of your patient. Stephan Cagle MD, PhD, FAASM. Diplomat of [place] [employer], Sleep Medicine Board by [place] [employer] Assistant Manager of [facility] [place] cc: Brandon Nassar MD Objective - Vital Signs Vital Signs: Vital Signs Temp 98.2 F 02/05/24 13:21 Pulse 104 H 02/05/24 13:21 Resp 16 02/05/24 13:21 BP 128/78 02/05/24 13:21 Pulse Ox 96 02/05/24 13:21 FiO2 Intake & Output 02/04/24 02/05/24 02/05/24 18:59 06:59 18:59 Weight 135.624 kg Home Medications: Home Medications Medication Instructions Recorded Confirmed Type ALPRAZolam [Xanax] 0.25 - 0.5 mg PO DAILY PRN 09/16/20 12/23/20 History Biotin 5 mg PO DAILY 09/16/20 02/05/24 History Butalb/APAP/Caff 50-325-40Mg 1 tab PO Q4H PRN 09/16/20 12/23/20 History [Fioricet 50-325-40] Cetirizine HCl [Zyrtec] 10 mg PO DAILY PRN 09/16/20 12/23/20 History Cholecalciferol [Vitamin D3 (25 50 mcg PO DAILY 09/16/20 12/23/20 History Mcg = 1000 Iu)] FLUoxetine HCL 40 mg PO DAILY 09/16/20 12/23/20 History Fluticasone Nasal [place] [Flonase 2 spr EA NOSTRIL DAILY PRN 09/16/20 12/23/20 History Nasal [place]] Multivitamins, Thera [Multivitamin 1 tab PO DAILY 09/16/20 02/05/24 History (formulary)] busPIRone HCL 5 mg PO BID 12/21/20 12/23/20 History DULoxetine HCL [Cymbalta] 30 mg PO BID 02/05/24 02/05/24 History Fexofenadine/Pseudoephedrine See Rx Instructions .ROUTE .COMPLEX 02/05/24 02/05/24 History [Sandra-D 12 Hour Tablet]
== END ==
LOC: 3 N SLEEP 13:06
PROVIDERS: ATTEND Internal Medicine
DX: G47.33 Obstructive sleep apnea (adult) (pediatric) (principal); E66.9 Obesity, unspecified; F41.9 Anxiety disorder, unspecified; F32.A Depression, unspecified; Z86.2 Personal history of diseases of the blood and blood-forming organs and certain disorders involving the immune mechanism; Z87.42 Personal history of other diseases of the female genital tract; Z90.49 Acquired absence of other specified parts of digestive tract; Z98.890 Other specified postprocedural states; Z99.89 Dependence on other enabling machines and devices; Z98.84 Bariatric surgery status; Z68.44 Body mass index [BMI] 60.0-69.9, adult; Z88.0 Allergy status to penicillin
CPT/HCPCS: 99212

== ENCOUNTER → 2024-07-15 | Outpatient (CLI) | payer BC ==
--- NOTE | 2024-07-15 14:50 | MR ---
EXAMINATION TYPE: MR brain wo/w con DATE OF EXAM: 07/15/2024 COMPARISON: Prior MRI brain March 08, 2018 HISTORY: Headaches, pressure TECHNIQUE: Multiplanar, multisequence images of the brain and brainstem is performed without and with IV contras t, utilizing 12 mL intravenous Gadobutrol . FINDINGS: Diffusion weighted images demonstrate no evidence of a recent infarct or other diffusion ab normality. The ventricular system and cisternal spaces are normal in size and appearance. The brain volume is age appropriate. Occasional tiny T2 hyperintense focus scattered throughout the white matte r bilaterally. Less than 5 lesions are identified on current study. Midline structures demonstrate normal morphology. The craniocervical junction appears within normal limits. Post contrast images demonstrate no abnormal enhancement. The dural venous sinuses appear pa tent. Stable minimal to mild mucosal thickening bilateral ethmoid sinuses otherwise The visualized si nuses are clear and the globes are intact. IMPRESSION: Stable minimal nonspecific white matter change and mild to minimal bilateral chronic ethm oid sinus disease. No significant change from most recent prior MRI. [facility], , 07/15/2024 2:48 PM
== END | disposition home or self-care (01) ==
LOC: RADMRIMAIN 13:24
PROVIDERS: ATTEND Psychiatry & Neurology Neurology
DX: G93.9 Disorder of brain, unspecified (principal); J32.2 Chronic ethmoidal sinusitis
CPT/HCPCS: 70553; A9585

== ENCOUNTER → 2024-07-23 | Outpatient (CLI) | payer BC ==
--- NOTE | 2024-07-23 10:26 | MM ---
Reason for Exam: Screening (asymptomatic). Last mammogram was performed 1 year(s) and 7 month(s) ago. Patient History: Menarche at age 14. First Full-Term at age 20. Postmenopausal. Sister had breast cancer, age 48. Risk Values: Mary Kate 5 year model risk: 1.7%. NCI Lifetime model risk: 16.5%. Prior Study Comparison: 08/17/2020 Bilateral Screening Mammogram, [facility]. 10/12/2021 Bilateral MG screening mammo w CAD, [facility]. 12/27/2022 Bilateral MG screening mammo w CAD, [facility]. Tissue Density: The breasts are almost entirely fatty. Findings: Analyzed By CAD. Right breast: There is no suspicious group of microcalcifications or new suspicious mass. Left breast: There is no suspicious group of microcalcifications or new suspicious mass. Overall Assessment: Negative, BI-RAD 1 Management: Screening Mammogram of both breasts in [address] [facility] will attempt to contact patient to return for supplemental views and ultrasound if indicated. Patient should continue monthly self-breast exams. A clinical breast exam by your physician is recommended on an annual basis. This exam should not preclude additional follow-up of suspicious palpable abnormalities. Note on Mary Kate scores and lifetime risk: 1. A Mary Kate score greater than 3% is considered moderate risk. If this is the case, consider specialist referral to assess eligibility for a risk reducing agent. 2. If overall lifetime risk for the development of breast cancer is 20% or higher, the patient may qualify for future screening with alternating mammogram and breast MRI. [facility], , 07/23/2024 8:08 AM. Electronically signed and approved by: Jose Ibanez DO
== END | disposition home or self-care (01) ==
LOC: RADMAMWWP 07:25
PROVIDERS: ATTEND Obstetrics & Gynecology
DX: Z12.31 Encounter for screening mammogram for malignant neoplasm of breast (principal); R92.313 Mammographic fatty tissue density, bilateral breasts; Z78.0 Asymptomatic menopausal state; Z80.3 Family history of malignant neoplasm of breast
CPT/HCPCS: 77067